=== PATIENT | female | born 1970 | race Caucasian/White ===

== ENCOUNTER 2018-01-13 06:13 | Day surgery (SDC) | payer OTHER ==
[2018-01-13] MEDS ORDERED: LIDOCAINE 2% (SDV) 5 ML INJ (07:00)
[2018-01-13] MEDS ORDERED: DEXAMETHASONE 4 MG/ML 1 ML INJ (07:00)
[2018-01-13] MEDS ORDERED: CEFAZOLIN 1 GM INJ (07:00)
[2018-01-13] MEDS ORDERED: METOCLOPRAMIDE 10 MG INJ (07:00)
[2018-01-13] MEDS ORDERED: CEFAZOLIN 2 GM/50 ML (PMX) 50 ML IVPB (07:30)
[2018-01-13] MEDS: LACTATED RINGER'S 1,000 ML IV* (07:30)
[2018-01-13] MEDS ORDERED: MIDAZOLAM 1 MG/ML 2 ML INJ (07:48)
[2018-01-13] MEDS ORDERED: FENTAnyl 50 MCG/ML VIAL (07:48)
[2018-01-13] MEDS: BUPIVACAINE 0.5%/EPI (SDV) 30 ML INJ (08:27)
[2018-01-13] MEDS ORDERED: FENTAnyl 50 MCG/ML VIAL IV (08:30)
[2018-01-13] MEDS ORDERED: DIPHENHYDRAMINE 50 MG INJ IV (08:30)
[2018-01-13] MEDS ORDERED: HYDROmorphONE (0.2 MG/ML) 10ML SYG IV (08:30)
[2018-01-13] MEDS ORDERED: MEPERIDINE 25 MG INJ IV (08:30)
[2018-01-13] MEDS ORDERED: KETOROLAC 30 MG INJ IV (08:30)
[2018-01-13] MEDS ORDERED: PROPOFOL 20 ML (08:34)
[2018-01-13] MEDS ORDERED: SUCCINYLCHOLINE CHLORIDE 100 MG/5 ML SYG IV (08:35)
[2018-01-13] MEDS ORDERED: ROCURONIUM 50 MG INJ (08:35)
[2018-01-13] MEDS ORDERED: ONDANSETRON 4 MG INJ (08:36)
[2018-01-13] MEDS ORDERED: SUGAMMADEX SODIUM 200 MG/2 ML VIAL IV (08:47)
[2018-01-13] MEDS: ONDANSETRON 4 MG INJ IV (09:06)
[2018-01-13] MEDS: HYDROmorphONE (0.2 MG/ML) 10ML SYG IV (09:06)
== END 2018-01-13 10:20 | disposition home or self-care (01) ==
LOC: SDS 06:13
DX: Z30.2 Encounter for sterilization (principal)
CPT/HCPCS: 58670; 93005